=== PATIENT | female | born 1945 | race Caucasian/White ===

== ENCOUNTER 2018-01-02 22:47 | Emergency (ER) | payer OTHER, MEDICARE ==
--- NOTE | 2018-01-02 23:40 | ER ---
Nurse's Notes [facility] Name: Sherrie Danielle Age: 72 yrs Sex: Female : 1945 Arrival Date: 01/02/2018 Time: 22:51 Bed 6 Private MD: Diagnosis: Decreased vision left eye. S/P multi focus lens implant left eye Presentation: 01/02 22:50 Presenting complaint: Patient states: that 3 weeks ago she had a left eye multifocus fc lense implant by Dr Rose Banda. She was seen by him yesterday and all was ok. Then when she woke up today her left eye felt funny and at 2100 tonight she noticed that everything was fuzzy and she had floaters. Transition of care: patient was not received from another setting of care. Onset of symptoms was January 02, 2018. Initial Sepsis Screen: Does the patient meet any 2 criteria? No. Patient's initial sepsis screen is negative. Does the patient have a suspected source of infection? No. Patient's initial sepsis screen is negative. Care prior to arrival: None. 22:50 Method Of Arrival: Ambulatory fc 22:50 Acuity: SANDRA 2 Triage Assessment: 23:22 General: Appears in no apparent distress. Behavior is calm, cooperative. Pain: Denies ak1 pain. EENT: Reports blurred vision in iris of left eye since tonight. Neuro: Level of Consciousness is awake, alert, obeys commands, Oriented to person, place, time, situation, Beadworker are equal bilaterally Moves all extremities. Gait is steady, Speech is normal, Facial symmetry appears normal, Pupils are PERRLA. Cardiovascular: No deficits noted. Respiratory: No deficits noted. GI: No signs and/or symptoms were reported involving the gastrointestinal system. : No signs and/or symptoms were reported regarding the genitourinary system. Derm: No signs and/or symptoms reported regarding the dermatologic system. Musculoskeletal: No signs and/or symptoms reported regarding the musculoskeletal system. Historical: - Allergies: 23:14 Codeine; fc - Home Meds: 23:14 Diovan HCT 320-12.5 mg Oral tab 1 tab once daily [Active]; Alprazolam Oral nightly fc [Active]; Synthroid 175 mcg Oral tab 1 tab once daily [Active]; omeprazole 20 mg Oral cpDR 1 cap once daily [Active]; - PMHx: 23:14 Sleep Apnea; Hypertension; Hypothyroidism; Cancer, Breast; 3 leaking heart valves; fc - PSHx: 23:14 Mastectomy; Hysterectomy; back surg; Tonsillectomy; eye surg; fc - Immunization history:: Last tetanus immunization: up to date. - Social history:: Smoking status: Patient/guardian denies using tobacco, Patient/guardian denies using alcohol, street drugs. Screenin:11 Abuse screen: Denies threats or abuse. Nutritional screening: No deficits noted. fc Tuberculosis screening: No symptoms or risk factors identified. Fall Risk None identified. Assessment: 23:23 Reassessment: Patient appears in no apparent distress at this time. No changes from ak1 previously documented assessment. see triage assessment. Vital Signs: 22:50 BP 120 / 53; Pulse 74; Resp 18; Temp 98.7(O); Pulse Ox 97% on R/A; Weight 68.95 kg (R); fc Height 5 ft. 2 in. (157.48 cm) (R); Pain 0/10; 22:50 Body Mass Index 27.80 (68.95 kg, 157.48 cm) fc Visual Acuity: 23:20 Left Eye Normal, Reactive To Accomodation; Right Eye Visual acuity 20/30, Reactive To ak1 Accomodation; Without Lenses; pt stated she only shes black blurr, no shapes, no letters out of her left eye during acuity exam. ERP notified. ED Course: 22:50 Arm band placed on Patient placed in an exam room. fc 22:51 Patient arrived in ED. do 23:10 Triage completed. fc 23:11 Cornel Randall MD is Attending Physician. pkl 23:11 Patient has correct armband on for positive identification. Bed in low position. Call fc light in reach. 23:11 No provider procedures requiring assistance completed. fc 23:20 Lala Proctor, RN is Primary Nurse. ak1 23:26 Patient did not have IV access during this emergency room visit. ak1 23:39 Andre Banda MD is Referral Physician. pkl Administered Medications: No medications were administered Outcome: 23:26 Condition: stable ak1 23:40 Discharge ordered by . pkl 23:43 Discharged to home ambulatory, with family. ak1 23:43 Discharge instructions given to patient, Instructed on discharge instructions, follow up and referral plans. Demonstrated understanding of instructions, follow-up care. 23:44 Patient left the ED. ak1 Signatures: Cornel Randall MD MD pkl Chretien, Felicia RN RN Lala Hilario RN RN ak1 Nancy Nguyen do
--- NOTE | 2018-01-02 23:40 | EDPHYS ---
Physician Documentation [facility] Name: Sherrie Danielle Age: 72 yrs Sex: Female : 1945 Arrival Date: 01/02/2018 Time: 22:51 Bed 6 Private MD: ED Physician Cornel Randall HPI: 01/02 23:28 This 72 yrs old Female presents to ER via Ambulatory with complaints of Loss pkl Of Vision. 23:28 Decreased vision left eye. Onset: The symptoms/episode began/occurred just prior to pkl arrival, 2 hour(s) ago. S/P multi focus lens implant [address] Rose Banda. Patient was seen by Dr. Rose Banda yesterday for follow up and patient was doing well. Tonight she said her vision on the left eye was fuzzy and seeing floaters. Denies any pain.. Historical: - Allergies: 23:14 Codeine; fc - Home Meds: 23:14 Diovan HCT 320-12.5 mg Oral tab 1 tab once daily [Active]; Alprazolam Oral nightly fc [Active]; Synthroid 175 mcg Oral tab 1 tab once daily [Active]; omeprazole 20 mg Oral cpDR 1 cap once daily [Active]; - PMHx: 23:14 Sleep Apnea; Hypertension; Hypothyroidism; Cancer, Breast; 3 leaking heart valves; fc - PSHx: 23:14 Mastectomy; Hysterectomy; back surg; Tonsillectomy; eye surg; fc - Immunization history:: Last tetanus immunization: up to date. - Social history:: Smoking status: Patient/guardian denies using tobacco, Patient/guardian denies using alcohol, street drugs. ROS: 23:28 ENT: Negative for injury, pain, and discharge. pkl 23:28 Eyes: Positive for blurry vision, of the left eye. 23:28 Neck: Negative for stiffness. 23:28 Cardiovascular: Negative for chest pain. 23:28 Respiratory: Negative for cough, shortness of breath. 23:28 Abdomen/GI: Negative for abdominal pain, nausea, vomiting, and diarrhea. 23:28 Back: Negative for acute changes. 23:28 : Negative for urinary symptoms. 23:28 MS/extremity: Negative for acute changes. 23:28 Skin: Negative for rash. 23:28 Neuro: Negative for altered mental status. Exam: 23:28 Head/Face: Normocephalic, atraumatic. pkl 23:28 Eyes: Periorbital structures: appear normal, Pupils: no acute changes, Vision blurry and seeing floaters. 23:28 Neck: Exam negative for acute changes. 23:28 Chest/axilla: Exam negative for acute changes. 23:28 Cardiovascular: Rate: normal, Rhythm: regular. 23:28 Respiratory: Exam negative for acute changes. 23:28 Abdomen/GI: Exam negative for acute changes. 23:28 Back: Exam negative for acute changes. 23:28 : Exam negative for acute changes. 23:28 Musculoskeletal/extremity: Exam is negative for acute changes. 23:28 Skin: Exam negative for rash. 23:28 Neuro: Orientation: is normal, Mentation: is normal, Cranial nerves: grossly normal, Motor: is normal. Vital Signs: 22:50 BP 120 / 53; Pulse 74; Resp 18; Temp 98.7(O); Pulse Ox 97% on R/A; Weight 68.95 kg (R); fc Height 5 ft. 2 in. (157.48 cm) (R); Pain 0/10; 22:50 Body Mass Index 27.80 (68.95 kg, 157.48 cm) fc Visual Acuity: 23:20 Left Eye Normal, Reactive To Accomodation; Right Eye Visual acuity 20/30, Reactive To ak1 Accomodation; Without Lenses; pt stated she only shes black blurr, no shapes, no letters out of her left eye during acuity exam. ERP notified. MDM: 23:11 Patient medically screened. pkl 23:28 Data reviewed: vital signs, nurses notes. ED course: Talked to Dr. Rose Banda, will see pkl patient in the office on Thursday ( 01/04/18 ). 01/02 23:16 Order name: Visual Acuity; Complete Time: 23:20 pkl Administered Medications: No medications were administered Disposition: 01/02/18 23:40 Discharged to Home. Impression: Decreased vision left eye. S/P multi focus lens implant left eye. - Condition is Stable. - Medication Reconciliation Form, Thank You Letter, Antibiotic Education, Prescription Opioid Use form. - Follow up: Andre Banda MD; When: 1 - 2 days; Reason: Re-evaluation by your physician. - Problem is new. - Symptoms are unchanged. Signatures: Cornel Randall MD MD pkMadiha Jackson, RN RN Lala Proctor, RN RN ak1 Corrections: (The following items were deleted from the chart) 23:44 23:40 01/02/2018 23:40 Discharged to Home. Impression: Decreased vision left eye. S/P ak1 multi focus lens implant left eye. Condition is Stable. Forms are Medication Reconciliation Form, Thank You Letter, Antibiotic Education, Prescription Opioid Use. Follow up: Andre Banda; When: 1 - 2 days; Reason: Re-evaluation by your physician. Problem is new. Symptoms are unchanged. pkl
== END 2018-01-02 23:44 | disposition home or self-care (01) ==
LOC: ER 22:47
DX: Z98.890 Other specified postprocedural states (principal); I10 Essential (primary) hypertension; E03.9 Hypothyroidism, unspecified; Z95.818 Presence of other cardiac implants and grafts; Z85.3 Personal history of malignant neoplasm of breast; Z88.5 Allergy status to narcotic agent; Z90.13 Acquired absence of bilateral breasts and nipples
CPT/HCPCS: 99282